=== PATIENT | female | born 2000 | race Caucasian/White ===

== ENCOUNTER 2020-12-18 15:53 | Emergency (ER) | payer MEDICAID ==
[~2020-12-18] VITALS: Ht 177.8 cm; Wt 109.0 kg
[2020-12-18] MEDS ORDERED: IBUP-2028 MT (17:45)
[2020-12-18] MEDS ORDERED: IBUPROFEN 600MG TABLET PO ONE (17:45)
[2020-12-18] MEDS ORDERED: CIPHCO EACH EAR (17:45)
[2020-12-18 18:18] VITALS: BP 137/85
== END 2020-12-18 18:34 | disposition home or self-care (01) ==
LOC: ER 15:53
DX: H60.93 Unspecified otitis externa, bilateral (principal); Z79.899 Other long term (current) drug therapy
CPT/HCPCS: 99283

== ENCOUNTER 2021-02-26 23:25 | Emergency (ER) | payer MEDICAID ==
[~2021-02-26] VITALS: Ht 177.8 cm; Wt 100.0 kg
[~2021-02-26 23:25] MED LIST: CIPHCO EACH EAR; IBUP-2028 MT
[2021-02-27] MEDS ORDERED: KETOROLAC 60MG/2ML VIAL IM ONE (00:30)
[2021-02-27] MEDS ORDERED: IBUP-2029 MT (02:15)
[2021-02-27 02:24] VITALS: BP 138/70
== END 2021-02-27 02:27 | disposition home or self-care (01) ==
LOC: ER 23:25
DX: M79.672 Pain in left foot (principal); W18.40XA Slipping, tripping and stumbling without falling, unspecified, initial encounter; Y93.89 Activity, other specified; R03.0 Elevated blood-pressure reading, without diagnosis of hypertension; Y92.89 Other specified places as the place of occurrence of the external cause; Y99.0 Civilian activity done for income or pay
CPT/HCPCS: 29515; 73630; 81025; 96372; 99283; J1885; Z7610